=== PATIENT | male | born 1985 | race Caucasian/White ===

== ENCOUNTER 2025-01-08 18:24 | Emergency (ER) | payer SELFPAY ==
[~2025-01-08] VITALS: Ht 170.2 cm; Wt 80.0 kg
[2025-01-08 18:27] VITALS: BP 154/108; PULSE 84; RESP 16; TEMP 36.6; O2SAT 99
== END 2025-01-08 18:56 | disposition left against medical advice (07) ==
LOC: ER 18:24
DX: F99 Mental disorder, not otherwise specified (principal)
CPT/HCPCS: 99283